=== PATIENT | male | born 1990 | race Caucasian/White ===

== ENCOUNTER 2025-01-08 07:52 | Emergency (ER) | payer OTHER, SELFPAY ==
[2025-01-08 08:12] VITALS: BP 169/111; PULSE 124; RESP 20; TEMP 37.1; O2SAT 100; BMI 33.9
--- NOTE | 2025-01-08 09:11 | ED_ITS ---
HPI - Extremity Problem 2 General: Chief complaint: Extremity Problem,Nontraumatic Stated complaint: pain in lower extremities Time Seen by Provider: 01/08/25 09:01 Source: patient Mode of arrival: wheelchair Limitations: no limitations History of Present Illness: Patient is a 34-year-old male presents to ED today with a complaint of pain and edema involving his left lower leg. Patient states he does have a history of gout and will intermittently have flares to the left knee as well as left ankle and foot. He states he has never had a gout flare this significant before. He began noticing pain with ambulation 2 to 3 days ago on the knee. He states yesterday he was on the couch and sneezed and states that every muscle on my leg seized and has had significant discomfort since. He has noticed significant pain and edema surrounding the left knee joint. No recent injury or trauma. No recent surgeries or illness. He has not noticed any overlying erythema. He has not been running fevers. He arrives tachycardic that he states is from pain and anxiety. Patient states he has never had cultures/crystal analysis of any joint performed. He does not take allopurinol. MD Complaint: joint swelling and joint pain Onset (ago): day(s) Pain Consistency: constant Location: left and knee Severity scale (1-10): 10 Relieving factors: nothing Exacerbating factors: range of motion, weight bearing, walking and palpation Associated symptoms: Deny chest pain, fever(s) or rash Context: history of gout Related Data Previous Rx's ?Medication ?Instructions ?Recorded indomethacin 50 mg capsule 50 mg PO TID #15 caps 01/08 prednisone 10 mg tablet 10 mg PO DAILY 7 days #27 ta bs 01/08/25 Allergies Allergy/AdvReac Type Severity Reaction Status Date / Time No Known Allergies Allergy Unverified 06/14/24 15:56 Review of Systems 2 Const: Denies: fever(s), chills, body aches, fatigue or malaise Card: Denies: chest pain Resp: Denies: dyspnea GI: Reports: nausea (states from pain) and vomiting; Denies: abdominal pain : Denies: flank pain or dysuria Musc: Reports: extremity pain, extremity swelling, joint pain and joint swelling; Denies: neck pain, back pain or joint redness Skin/Breast: Denies: rash Neuro: Reports: difficulty walking (secondary to pain in L LE); Denies: headache(s), numbness in extremities, weakness in extremities or sensory changes Psych: Reports: anxiety PFSH ED 2 PFSH: Social History Smoking and tobacco/nicotine status: current every day tobacco/nicotine user Physical Exam 2 Const: COMMON NORMALS: no acute distress, patient oriented x3, no limitations, alert and well nourished GENERAL APPEARANCE: cooperative, anxious and appears older than stated age ORIENTATION/CONSCIOUSNESS: Yes awake, Yes oriented to person, Yes oriented to place and Yes oriented to time Resp: COMMON NORMALS: normal respiratory effort and clear to auscultation bilaterally AUSCULTATION: clear to auscultation bilaterally Cardio: COMMON NORMALS: regular rhythm RATE: tachycardic RHYTHM: regular rhythm Extremity: COMMON NORMALS: capillary refill normal GENERAL: Yes normal exam except as noted OTHER: full exam of L LE is inhibited by patient's discomfort; he has significant swelling throughout the L knee joint with warmth; no erythema; significant pain with ROM; reporting pain down into calf; no obvious edema to ankle/foot; DP/PT pulses normal with normal cap refill and sensation Neuro: COMMON NORMALS: patient oriented x3, moves all extremities, no focal motor deficits and no sensory deficits noted SENSORIUM/ORIENTATION: Yes alert, Yes oriented to person, Yes oriented to place and Yes oriented to time GAIT: Yes Unable to assess gait Skin: COMMON NORMALS: no rashes or lesions noted GENERAL SKIN EXAM: no rashes or lesions noted Course 2 Vital Signs: Vital signs: Vital Signs Temperature 98.7 F 01/08/25 08:12 Pulse Rate 116 H 01/08/25 10:36 Respiratory Rate 18 01/08/25 10:36 Blood Pressure 173/124 01/08/25 10:36 Pulse Oximetry 92 01/08/25 10:36 Oxygen Delivery Me thod Room Air 01/08/25 08:12 MDM - Extremity (Nontraumatic) Medical Decision Making Patient here with a complaint of pain and edema to his left knee. He states he does have a history of gout and has had similar symptoms before just not as severe. He also had an episode yesterday where he sneezed and felt like every muscle in his leg locked up and seized . Not sure if the pain and edema today could be internal derangement. He has not had any recent injuries (cuts, scrapes, puncture wounds) to the knee. No recent surgeries. No recent illness. He is not complaining of fevers or bodyaches. He arrives tachycardic and hypertensive. He states these are chronic. He does not have a primary care provider. Blood work today showing a white count of 14.9. He does have significant elevations to his inflammatory markers. Elevated uric acid. Other incidental findings including hyponatremia and elevated LFTs. He has been told previously he has elevated LFTs-used to drink alcohol frequently but no longer does. No history of hepatitis. He is not having any abdominal symptoms today. His lactic is normal. DDx includes septic arthritis although I think this would be very unlikely given his history of similar symptoms. Will be treated for a gout flare with NSAIDS/steroids. Was given IV meds here as well as colchicine and feels better. Referrals will be placed to get him set up with a primary care provider as well as orthopedics for the knee. Strict return to ED precautions discussed. Medical Records I reviewed the patient's medical records. Lab Data I reviewed the patient's lab results. 01/08/25 09:30 01/08/25 09:30 Radiology Impressions Knee X-Ray 01/08/25 09:24 IMPRESSION: Minimal osteoarthritis with moderate joint effusion. Laboratory Results WBC 14.95 10^3/uL (3.29-11.43) H 01/08/25 09:30 RBC 5.55 10^6/uL (3.85-5.65) 01/08/25 09:30 Hgb 18.10 g/dL (11.27-16.99) H 01/08/25 09:30 Hct 51.6 % (37-53) 01/08/25 09:30 MCV 93.0 fl (82-101) 01/08/25 09:30 MCH 32.6 pg (27-33) 01/08/25 09:30 MCHC 35.1 g/dL (30-55) 01/08/25 09:30 RDW 13.9 % (12.1-15.1) 01/08/25 09:30 Plt Count 279 10^3/cmm (157-399) 01/08/25 09:30 MPV 10.2 fL (7.4-10.4) 01/08/25 09:30 Neut % (Auto) 79.9 % 01/08/25 09:30 Lymph % (Auto) 9.7 % 01/08/25 09:30 Throckmorton % (Auto) 9.6 % 01/08/25 09:30 Eos % (Auto) 0.0 % 01/08/25 09:30 Baso % (Auto) 0.3 % 01/08/25 09:30 Neut # (Auto) 11.94 10^3/uL (1.8-7.7) H 01/08/25 09:30 Lymph # (Auto) 1.5 10^3/uL (0.8-4.8) 01/08/25 09:30 Throckmorton # (Auto) 1.4 10^3/uL (0.2-0.9) H 01/08/25 09:30 Eos # (Auto) 0.0 10^3/uL (0.0-0.8) 01/08/25 09:30 Baso # (Auto) 0.1 10^3/uL (0.0-0.1) 01/08/25 09:30 Nucleated RBC % (auto) 0 % 01/08/25 09:30 Nucleated RBCs # 0.0 /100WBC 01/08/25 09:30 ESR 57 mm/hr (0-10) H 01/08/25 09:30 Sodium 127 mmol/L (136-145) L 01/08/25 09:30 Potassium 3.7 mmol/L (3.5-5.1) 01/08/25 09:30 Chloride 84 mmol/L (98-107) L 01/08/25 09:30 Carbon Dioxide 24 mmol/L (22-29) 01/08/25 09:30 Anion Gap 22.7 (5-19) H 01/08/25 09:30 BUN 7 mg/dL (6-20) 01/08/25 09:30 Creatinine 0.9 mg/dL (0.7-1.2) 01/08/25 09:30 GFR Calculation 97.8 mL/min (90-130) 01/08/25 09:30 Glucose 95 mg/dL (65-115) 01/08/25 09:30 Calculated Osmolality 262 mOsm/kg (285-295) L 01/08/25 09:30 Lactic Acid 1.4 mmol/L (0.5-2.2) 01/08/25 09:46 Uric Acid 9.2 mg/dL (3.4-7.0) H 01/08/25 09:30 Calcium 9.6 mg/dL (8.5-10.5) 01/08/25 09:30 Total Bilirubin 2.4 mg/dL (0.15-1.2) H 01/08/25 09:30 AST 34 U/L (0-40) 01/08/25 09:30 ALT 48 U/L (0-41) H 01/08/25 09:30 Alkaline Phosphatase 148 U/L (40-130) H 01/08/25 09:30 C-Reactive Protein 237.8 mg/L (0.0-4.9) H 01/08/25 09:30 Total Protein 8.1 g/dL (6.6-8.7) 01/08/25 09:30 Albumin 4.0 g/dL (3.5-5.2) 01/08/25 09:30 Globulin 4.1 g/dL (1.3-4.6) 01/08/25 09:30 All radiology interpretation(s) finalized by discharge Discharge Plan Discharge Patient Disposition: Home Clinical Impression: Acute gout of left knee Qualifiers: Gout etiology: unspecified cause Qualified Code(s): M10.9 - Gout, unspecified Condition: Stable Prescriptions: New prednisone 10 mg tablet 10 mg PO DAILY 7 Days Qty: 27 0RF Rx Instructions: 6 tabs on days 1-2, 5 tabs on days 3, 4 tabs on day 4, 3 tabs on day 5, 2 tabs on day 6, 1 tab on day 7 indomethacin 50 mg capsule 50 mg PO TID Qty: 15 0RF Rx Instructions: administer with food or milk Discontinued ibuprofen [Advil] 200 mg Tablet 800 mg PO Q6H PRN (Reason: Fever Or Pain) Discharge Orders: Discharge ED (Routine); Ordered 01/08/25 Ordered By: Margaret oGrman Referrals: Silvino Penn MD [Family Provider, Family Practice] Patient Instructions: Gout (ED) Activity Restrictions/Additional Instructions: You need to ice and elevate the extremity and use crutches as needed for discomfort. Begin taking the prescription medications as directed. Do not take the indomethacin with other anti-inflammatory such as [id number] ibuprofen or naproxen. You need to return to the emergency department for worsening pain, swelling, fevers, or any other concerns you may have. I have placed a case management referrals/follow-ups for a primary care provider as well as orthopedics. We discussed incidental findings of your blood work including your liver enzyme elevations. Primary care can continue to monitor these. You need to start keeping a blood pressure log at home and if blood pressures continue to run high (over 130/80) you need to follow up with primary care and get on blood pressure medications. Stand Alone Forms: Work/School Release Print Language: Irish Coding Level of Care Code ED Riding Teacher for Sanjay Garrett
[2025-01-08 09:14] VITALS: PULSE 122; RESP 18; O2SAT 96
--- NOTE | 2025-01-08 09:24 | USCV_ITS ---
Rex Cedillo Age: 34 Gender: M : 1990 Exam Date: 01/08/2025 09:48 Ordering Phys: Margaret Gorman Technologist: Jose Antonio Greer Exam Location: [facility] [place]_ Indication: pain edema PROCEDURES: Venous duplex imaging was performed in only the left lower extremity. The following venous structures were evaluated: common femoral vein, profunda vein, proximal portion of the greater saphenous vein, superficial femoral vein, and the popliteal vein. In addition, the posterior tibial and peroneal trunk were evaluated. Serial compression, augmentation maneuvers, and spectral Doppler flow evaluation were performed. FINDINGS: Normal 2-D Doppler and augmentation and compressibility throughout the lower extremity venous structures. Additional imaging through the proximal calf veins also reveals no thrombus. Limited evaluation of the greater saphenous vein is patent with no thrombus. CONCLUSIONS No evidence of left lower extremity DVT. Kyle Lozano MD (Electronically Signed) Final Date: 08 January 2025 11:45 S
--- NOTE | 2025-01-08 09:24 | XR_ITS ---
WS: [id number] XR knee LT 3V* [id number] REASON FOR EXAM: pain/edema; hx gout? FINDINGS: There appears to be a moderate joint effusion. No fracture or focal bone lesion. No bone erosion. Medial knee joint space is intact with mild subchondral sclerosis of the tibial plateau. There is mild narrowing of the lateral knee joint space with mild subchondral sclerosis. The patellofemoral joint space is intact with minimal subchondral sclerosis of the patella. XR/XR knee LT 3V* [id number] IMPRESSION: Minimal osteoarthritis with moderate joint effusion.
[2025-01-08] MEDS: morphine 4 mg/mL SDV 1 mL IVP (09:33)
[2025-01-08] MEDS: ondansetron 2 mg/ML SDV 2 mL 4 MG IVP (09:33)
[2025-01-08 09:41] LABS: Basophils # 0.1 10^3/uL (0.0-0.1); Basophils % 0.3 %; Hematocrit 51.6 % (37-53); Lymphocytes # 1.5 10^3/uL (0.8-4.8); Lymphocytes % 9.7 %; Mean Corpuscular HGB Conc 35.1 g/dL (30-55); Mean Corpuscular Hemoglobin 32.6 pg (27-33); Mean Platelet Volume 10.2 fL (7.4-10.4); Monocytes # 1.4 10^3/uL (0.2-0.9); Monocytes % 9.6 %; Neutrophils # 11.94 10^3/uL (1.8-7.7); Neutrophils % 79.9 %; Nucleated Red Blood Cells % 0 %; Platelet Count 279 10^3/cmm (157-399); Red Blood Count 5.55 10^6/uL (3.85-5.65); Red Cell Distribution Width 13.9 % (12.1-15.1); White Blood Count 14.95 10^3/uL (3.29-11.43)
[2025-01-08 09:59] LABS: Alanine Aminotransferase 48 U/L (0-41); Alkaline Phosphatase 148 U/L (40-130); Anion Gap 22.7 (5-19); Aspartate Amino Transferase 34 U/L (0-40); Blood Urea Nitrogen 7 mg/dL (6-20); C Reactive Protein 237.8 mg/L (0.0-4.9); Calcium 9.6 mg/dL (8.5-10.5); Carbon Dioxide 24 mmol/L (22-29); Chloride 84 mmol/L (98-107); Creatinine Clr Calc Pharmacy 127.3027; Globulin 4.1 g/dL (1.3-4.6); Glomerular Filtration Rate 97.8 mL/min (90-130); Glucose 95 mg/dL (65-115); Osmolality Calculated 262 mOsm/kg (285-295); Potassium 3.7 mmol/L (3.5-5.1); Sodium 127 mmol/L (136-145); Total Bilirubin 2.4 mg/dL (0.15-1.2); Total Protein 8.1 g/dL (6.6-8.7); Uric Acid 9.2 mg/dL (3.4-7.0)
[2025-01-08 10:24] VITALS: BP 163/119; PULSE 118; RESP 16; O2SAT 96
[2025-01-08 10:25] LABS: Erythrocyte Sedimentation Rate 57 mm/hr (0-10)
[2025-01-08] MEDS: sodium chloride 0.9% 1,000 ML 999 ML IV (10:27)
[2025-01-08] MEDS: HYDROmorphone 0.5 MG/0.5 ML INJ 1 MG IVP (10:27)
[2025-01-08] MEDS: ketorolac 30 mg/mL INJ IVP (10:29)
[2025-01-08] MEDS: dexamethasone 10 mg/mL INJ IVP (10:29)
[2025-01-08 10:36] VITALS: BP 173/124; PULSE 116; RESP 18; O2SAT 92
[2025-01-08 10:38] LABS: Lactic Sepsis W/Reflex 1.4 mmol/L (0.5-2.2)
[2025-01-08] MEDS: colchicine 0.6 mg Tablet 1.2 MG PO (10:42)
[2025-01-08 11:04] VITALS: BP 147/109; PULSE 110; RESP 16; O2SAT 91
--- NOTE | 2025-01-11 08:17 | DCPLANNER ---
messaged ortho for er f/u
--- NOTE | 2025-01-11 08:18 | DCPLANNER ---
shannan ng to establish PCP
== END 2025-01-08 11:27 | disposition home or self-care (01) ==
PROVIDERS: Emergency Provider Physician Assistant; Family Provider Family Medicine
DX: M10.9 Gout, unspecified (principal); Z72.0 Tobacco use
CPT/HCPCS: 36415; 73562; 80053; 83605; 84550; 85025; 85651; 86140; 93971; 96361; 96374; 96375; 99284; E0114; J1100; J1171; J1885; J2270; J2405; J7030; J9999